=== PATIENT | female | born 1995 | race Caucasian/White ===

== ENCOUNTER 2025-03-01 15:24 | Emergency (ER) | payer OTHER, SELFPAY ==
--- OUTSIDE RECORDS SUMMARY | 2025-03-01 15:28 | XMS_ITS | Clinical Summary ---
Author Organization [facility] Virtual Care Address [facility] [place] [address] Phone Care Team Providers Care Molder Punch Name Role Phone Roc Coats MD Primary Care Provider [phone] Marti Alfaro ASSISTANT DIRECTOR Unavailable Allergies Active Allergy Reactions Criticality Noted Date Comments Penicillins Unknown 04/20/2016 As a child Penicillins Unknown 01/03/2022 Sulfa (Sulfonamide Antibiotics) Hives Reaction: Hives, Sulfa (Sulfonamide Antibiotics) Hives Medium 12/24 Medications fluticasone propionate (FLONASE) 50 mcg/actuation nasal sprayIndication s:Chronic rhinitis Administer 2 sprays into each nostril daily 1 each 4 Active Active Problems Problem Noted Date Diagnosed Date Chronic rhinitis 12/21/2023 Assessment & Plan (12/21/2023 2:59 PM FASHION CONSULTANT): Blood allergy testing Flonase 2 sprays into each nostril while looking down over the sink, do not sniff in or blow nose after use for at least 30 minutes daily Consider Cetirizine (Zyrtec) 10 mg daily Rhinorrhea 12/21/2023 Assessment & Plan (12/21/2023 2:59 PM FASHION CONSULTANT): Blood allergy testing Flonase 2 sprays into each nostril while looking down over the sink, do not sniff in or blow nose after use for at least 30 minutes daily Consider Cetirizine (Zyrtec) 10 mg daily Severe pre-eclampsia 02/15/2019 Hypertension in obstetric context 01/13/2019 Abdominal pain 12/16/2018 Chronic migraine without aur a without status migrainosus, not intractable 11/18/2018 Hemorrhage affecting 08/09/2018 Threatened miscarriage 07/19/2018 Overweight with body mass index (BMI) 25.0-29.9 02/04/2017 Allergic rhinitis 01/30/2017 Acute vaginitis 08/14/2016 Leukocytosis 05/26/2016 Urinary tract infectious disease 05/26/2016 Spontaneous without complication 2015 Breast lump 06/11/2015 Surgical History Surgery Date Site/Laterality Comments OTHER SURGICAL HISTORY 2014 : Spontaneaous Medical History Medical History Date Comments Hx Other Medical ; Outc ome: Unknown Migraine Hypertension Family History Medical History Relation Name Comments Hypertension Father Hypertension; Asthma Maternal Grandmother Asthma; Diabetes Maternal Grandmother Diabete s mellitus; Hypertension Other Family history of Hypertension; Cancer Paternal Grandfather Cancer, unknown; Hypertension Paternal Grandfather Hyperte nsion; Asthma Paternal Grandmother Asthma; Relation Name Status Comments Father Maternal Grandmother Other Paternal Grandfather Paternal Grandmother Social History Tobacco Use Types Packs/Day Years Used Date Smoking Tobacco: Never Smokeless Tobacco: Never Alcohol Use Standard Drinks/Week Comments No 0 (1 standard drink = 0.6 oz pur e alcohol) Comments Unknown Sex and Gender Information Value Date Recorded Sex Assigned at Not on file Legal Sex Female 7:11 PM CDT Gender Identity Not on file Sexual Orientation Not on file Obstetrics History Last Filed Vital Signs Vital Sign Reading Time Taken Comments Blood Pressure 134/86 12/21/2023 2:31 PM FASHION CONSULTANT Pulse 73 12/21/2023 2:31 PM FASHION CONSULTANT Temperature 36.4 C (97.6 F) 12/21/2023 2:31 PM FASHION CONSULTANT Respiratory Rate 16 02/28/2023 11:5 5 AM CDT Oxygen Saturation 97% 12/21/2023 2:31 PM FASHION CONSULTANT Inhaled Oxygen Concentration - - Weight 72.9 kg (160 lb 12.8 oz) 12/21/2023 2:31 PM FASHION CONSULTANT Height 157.5 cm (5' 2.01 ) 12/21/2023 2:31 PM CS T Body Mass Index 29.4 12/21/2023 2:31 PM FASHION CONSULTANT Plan of Treatment Health Maintenance Due Date Last Done Comments Cervical Cancer Screening 1995 Depression Screening 1995 Hepatitis C Screening 1995 Varicella Vaccines (1 of 2 - 13+ 2-dose series) 2008 Regular Well Visit/Exam 18-64 2013 Influenza Vaccine (#1) 2024 12/28/2019, 2017 DTaP/Tdap/Td Vaccine (8 - Td or Tdap) 01/27/2029 01/27/2019, 06/10/2006, 05/12/2001, Additional history exists Hepatitis B Screening Completed 05/26/2002 , 12/22/1996, 04/18/1996, Additional history exists HPV Vaccines Aged Out No longer eligi ble based on patient's age to complete this topic Pneumococcal vaccine <65 Aged Out No longer eligible based on patient's age to complete this topic Insurance [facility] CHOICE [facility]US [facility] Care Teams Molder Punch Relationship Specialty Start Date End Date Roc Coats MD [address] [facility] [address] [place] [address] PCP - General Family Medicine 01/03/22 Marti Alfaro NP [address] [facility] [address] [place] [address] 01/03/22
--- OUTSIDE RECORDS SUMMARY | 2025-03-01 15:28 | XMS_ITS | Clinical Summary ---
Author Organization [facility] Address [address] [place] [address] Care Team Providers Care Trash Man Name Role Phone Unavailable Primary Care Provider Unavailabl e Source Comments [facility],non-owned Affiliates and Associated Physician Practices is amultiple site organization consisting of ambulatory clinics and hospital sitesin [place], [place], [place] and [place]. This disclosure is being madepursuant to the Care Everywhere program and may not contain all information available regarding this patient. Last updated 18.[facility] Allergies Active Allergy Reactions Criticality Noted Date Comments Penicillins Unknown 01/27/2019 Sulfa Drugs Urticaria Medium 01/27/2019 Immunizations Immunization Administration Dates Next Due TDAP (7yrs+) 01/27/2019 Social History Tobacco Use Types Packs/Day Years Used Date Smoking Tobacco: Never Assessed Comments Unknown Sex and Gender Information Value Date Recorded Sex Assigned at Not on file Legal Sex Female 1:17 PM CDT Gender Identity Not on file Sexual Orientation Not on file Plan of Treatment Health Maintenance Due Date Last Done Comments HIV SCREENING 2010 HEPATITIS C SCREENING 10/11/2013 HEPATITIS B VACCINE (1 of 3 - 19+ 3-dose series) 2014 COVID-19 VACCINE (2023-2 5 season) 2024 DEPRESSION SCREENING 10/26/2024 INFLUENZA VACCINE (Season Ended) 2025 DTAP/TDAP/TD VACCINES (2 - T d or Tdap) 01/27/2029 01/27/2019 ZOSTER VACCINE (1 of 2) 2045 HIB VACCINE Aged Out No longer eligi ble based on patient's age to complete this topic HPV VACCINE Aged Out No longer eligi ble based on patient's age to complete this topic MENINGOCOCCAL (Group B) VACC INE SHARED DECISION-MAKING Aged Out No longer eligibl e based on patient's age to complete this topic MENINGOCOCCAL GROUPS A/C/Y/W VACCINE Aged Out No longer eligible b ased on patient's age to complete this topic PNEUMOCOCCAL VACCINE Aged Out No long er eligible based on patient's age to complete this topic Insurance [place] [address]
--- OUTSIDE RECORDS SUMMARY | 2025-03-01 15:28 | XMS_ITS | Clinical Summary ---
Author Organization [facility] Address [address] [place] [address] Phone Care Team Providers Care Care Aid Name Role Phone Roc Coats MD Primary Care Provider [phone] Elton Briceno Unavailable Allergies Active Allergy Reactions Criticality Noted Date Comments Penicillins Unknown 04/20/2016 As a child Sulfa Antibiotics Hives High 11/19/2015 Medications No known medications Active Problems Problem Noted Date Diagnosed Date Chronic migraine without aur a without status migrainosus, not intractable 11/18/2018 Physical exam, annual (Adult) 01/30/2017 Allergic rhinitis 01/30/2017 Immunizations Immunization Administration Dates Next Due DTAP VACCINE, UNSPECIFIED FORMULATION 05/12/2001 ,06/22/1997 DTP-Hib 04/18/1996,03/01/1996,01/04/1996 Hepatitis B Vaccine, Pediatric/adolescent 12/22/1996,04/18/1996,01/04/1996,10/21,1995 Hepatitis B Vaccine,unspecif ied Formulation 05/26/2002 Hib Vaccine,unspecified Formulation 06/22/1997 Inactivated Polio Vaccine 05/12/2001 Influenza Vaccine, Quadrivalent, PF 12/28/2019,1 MMR Vaccine 02/16/2019,05/12/2001,12/22/1996 Meningococcal Vaccine, Unspe cified Formulation 01/07/2010 OPV 04/18/1996,03/01/1996,01/04/1996 TDAP Vaccine 01/27/2019,06/10/2006 Family History Medical History Relation Name Comments Hypertension Father Cancer Paternal Grandfather Lung Cancer Paternal Grandmother Relation Name Status Comments Brother Alive Father Alive Mother Alive Paternal Grandfather Paternal Grandmother Sister Alive Social History Tobacco Use Types Packs/Day Years Used Date Smoking Tobacco: Never Smokeless Tobacco: Never Tobacco Cessation:Counseling Given: Yes Alcohol Use Standard Drinks/Week Comments No 0 (1 standard drink = 0.6 oz pur e alcohol) PHQ-2 Answer Date Recorded Total Score - Questions 1-9 0 01/2020 Education Answer Date Recorded What is the highest level of school you have completed or the highest degree you have received? Associate degree: academic program 01/27/2023 Sexually Active Control Partners Comments Yes Male Comments No Sex and Gender Information Value Date Recorded Sex Assigned at Not on file Legal Sex Female 7:58 PM CDT Gender Identity Not on file Sexual Orientation Not on file Last Filed Vital Signs Vital Sign Reading Time Taken Comments Blood Pressure 122/70 01/12/2024 2:53 PM CDT Pulse 85 01/12/2024 2:53 PM CDT Temperature 36.1 C (96.9 F) 01/12/2024 2:53 PM CDT Respiratory Rate 14 01/12/2024 2:53 PM CDT Oxygen Saturation 100% 01/12/2024 2:53 PM CDT Inhaled Oxygen Concentration - - Weight 73.8 kg (162 lb 11.2 oz) 01/12/2024 2:53 PM CDT Height 157.5 cm (5' 2 ) 01/12/2024 2:53 PM CDT Body Mass Index 29.76 01/12/2024 2:53 PM CDT Plan of Treatment Health Maintenance Due Date Last Done Comments Influenza Immunization (Season Ended) 2025 12/28/2019, 12/28/2019, 08/11/2018 Pap Smear 01/27/2026 01/27/2023, 01/24/2021 DTaP/Tdap/Td Immunization (8 - Td or Tdap) 01/27/2029 01/27/2019, 06/10/2006, 05/12/2001, Additional history exists Td Immunization Every 10 Years (Adults With 1 Tdap) 01/27/2029 01/27/2019, 06/10/2006 Respiratory Syncytial Virus (RSV) Immunization (Adult) (1 - 1-dose 75+ series) 2070 Hepatitis B Immunization Completed 002, 12/22/1996, 04/18/1996, Additional history exists Meningococcal Immunization (ACWY) Aged Out 01/07/2010 No longer eligible based on patient's age to complete this topic Hepatitis C Virus (HCV) Screening Discontinued Pneumococcal Immunization Combined Aged Out No longer eligible based on patient's age to complete this topic Rotavirus Immunization Aged Out No lo nger eligible based on patient's age to complete this topic SARS-COV-2 Immunization Discontinued Procedures Procedure Name Priority Date/Time Associated Diagnosis Comments PATHOLOGY CYTOLOGY PLACEMENT SPECIALIST Routine 01/27/2023 5:17 PM CDT Screening for malignant neoplasm of cervix Encounter for annual routine gynecological examination from Last 3 Months or Most Recently Relevant to Health Maintenance Results * PATHOLOGY CYTOLOGY PLACEMENT SPECIALIST (01/27/2023 5:17 PM CDT) SPECIMEN ADEQUACY Satisfactory for evaluation. Endocervical/transf ormation zone component is present. 02/05/2023 2:47 PM CDT [facility] DESCRIPTIVE DIAGNOSIS NEGATIVE FOR INTRAEPITHELIAL LESIONS OR MALIGNANCY. 02/05/2023 2:47 PM CDT [facility] at 1447 CDT Automated Examination This sample was not evaluated by the automated imaging and review system due to technical and/or biologic factor(s). The case was screened, reviewed, and finalized by a cotton ball bagger and/or pathologist. 02/05/2023 2:47 PM CDT [facility] Disclaimer The PAP smear is a screening test designed to detect cancerous or precancerous cells of the uterine cervix. It is one of the best means available for detection of cervical cancer but still carries an inherent false-negative rate. The consequences of a false-negative PAP result can be minimized by adhering to current screening guidelines. The following are general guidelines recommended by the ACS, ASCP, ASCCP, and ACOG: PAP testing is recommended every three years for women 21-29, Co-Testing , a PAP test in conjunction with an HPV (Human Papillomavirus) test for women ages 30-65, and no PAP or HPV testing for women under the age of 21 or older than 65 unless clinically indicated. 02/05/2023 2:47 PM CDT [facility] Other CERVIX UTERI STRUCTURE / Unknown Non-Phlebotomy Collection / Unknown 01/27/2023 5:17 PM CDT 01/27/2023 5:17 PM CDT us Heather Castillo LONGWALL MACHINE OPERATOR HELPER, LEAD DATA ARCHITECT PATHOLOGY/CYTOLOGY O RDERABLES Final Result [facility] [address] [place] [address], [facility] [address] [place] [address] from Last 3 Months or Most Recently Relevant to Health Maintenance Insurance MEDICAID [place] Advance Directives * Full Code (Latest Code Status on File) Date Activated Date Inactivated Comments 06/13/2016 2:16 PM 06/13/2016 7:50 PM CPR-Full Alex atment: FULL ARREST: Attempt Resuscitation/CPR wit intubation and mechanical ventilation. PRE-ARREST: Use entire range of life support measures to stabilize the patient. Care Teams Care Aid Relationship Specialty Start Date End Date Roc Coats MD [address] [address] PCP - General Family Medicine 10/01/17 Elton Briceno [address] [place] [address] Plastic Press Operator Artificial Inseminator 07/07/19
--- OUTSIDE RECORDS SUMMARY | 2025-03-01 15:28 | XMS_ITS | Encounter Summary ---
Author Organization [facility] Address [address] [facility] [place] [address] Phone Care Team Providers Care Kick Press Operator Name Role Phone Roc Coats MD Primary Care Provider [phone] Elton Briceno Unavailable Encounter Details Date Type Department Care Team (Late st Contact Info) Description 01/12/2024 Telephone [facility] [address] [place] [address] Roc Coats MD [address] [address] Social History Tobacco Use Types Packs/Day Years Used Date Smoking Tobacco: Never Smokeless Tobacco: Never Alcohol Use Standard Drinks/Week Comments No 0 (1 standard drink = 0.6 oz pur e alcohol) PHQ-2 Answer Date Recorded Total Score - Questions 1-9 0 03/0 01/2020 Education Answer Date Recorded What is [...] on file Sexual Orientation Not on file documented as of this encounter Plan of Treatment Not on file documented as of this encounter Visit Diagnoses Not on filedocumented in this encounter Additional Health Concerns Assessment Noted Time PHQ-9 Depression Total Score: 0 12/28/19 20 9:55 AM MATERIAL RECLAIMER documented as of this encounter Care Teams Kick Press Operator Relationship Specialty Start Date End Date Roc Coats MD [address] [address] PCP - General Family Medicine 10/01/17 Elton Briceno [address] [place] [address] Hull Inspector Occupational Health Nurse 07/07/19 documented as of this encounter
--- OUTSIDE RECORDS SUMMARY | 2025-03-01 15:28 | XMS_ITS | Referral Summary ---
Author Organization [facility] Virtual Care Address [facility] [place] [address] Phone Care Team Providers Care Denial Management Representative Name Role Phone Roc Coats MD Primary Care Provider [phone] Marti Alfaro [employer]IP[employer]IC Unavailable Allergies Active Allergy Reactions Criticality Noted [...] 12/21/2023 Assessment & Plan (12/21/2023 2:59 PM [employer]P [employer]): Blood allergy testing Flonase 2 sprays into each nostril while looking down over the sink, do not sniff in or blow nose after use for at least 30 minutes daily Consider Cetirizine (Zyrtec) 10 mg daily Rhinorrhea 12/21/2023 Assessment & Plan (12/21/2023 2:59 PM EVP [employer] SALES): Blood allergy testing Flonase 2 sprays into [...] Spontaneous without complication 2015 Breast lump 06/11/2015 Social History Tobacco Use Types Packs/Day Years [...] Comments Blood Pressure 134/86 12/21/2023 2:31 PM EVP [employer] Pulse 73 12/21/2023 2:31 PM EVP [employer] SALES Temperature 36.4 C (97.6 F) 12/21/2023 2:31 PM EVP [employer] SALES Respiratory Rate 16 02/28/2023 11:5 5 AM CDT Oxygen Saturation 97% 12/21/2023 2:31 PM EVP [employer]ES Inhaled Oxygen Concentration - - Weight 72.9 kg (160 lb 12.8 oz) 12/21/2023 2:31 PM EVP [employer] SALES Height 157.5 cm (5' 2.01 ) 12/21/2023 2:31 PM CS T Body Mass Index 29.4 12/21/2023 2:31 PM EVP GLOBAL MULTIMEDIA SALES Plan of Treatment Not on file Insurance [facility] Care Teams Denial Management Representative Relationship Specialty Start Date End Date Roc Coats MD [address] [facility] [address] [place] [address] PCP - General Family Medicine 01/03/22 Marti Alfaro NP [address] [facility] [address] [place] [address] 01/03/22
[2025-03-01 15:36] VITALS: BP 125/74; PULSE 86; RESP 16; TEMP 36.9; O2SAT 100
--- NOTE | 2025-03-01 16:22 | ED_ITS ---
HPI - Female Genitourinary General Chief complaint: Urogenital-Female Stated complaint: urinary irritation Time Seen by Provider: 03/01/25 15:55 Source: patient and RN notes reviewed Mode of arrival: ambulatory Limitations: no limitations History of Present Illness HPI Narrative: 29-year-old female presents Express Care complaining of urinary tract symptoms for 2 days. Patient reports burning with urination foul-smelling urine, increased frequency and hesitancy, and suprapubic abdominal pain since yesterday. Patient has taken Azo [id number] for symptom relief. Patient denies any fevers, body aches, chills, back pain, flank pain, blood in her urine. Patient denies any concerns for STIs, vaginal discharge or vaginal bleeding. Related Data Allergies Allergy/AdvReac Type Severity Reaction Status Date / Time Penicillins Allergy Unknown Unknown Verified 03/01/25 15:36 Sulfa (Sulfonamide Allergy Unknown Unknown Verified 03/01/25 15:36 Antibiotics) Review of Systems Review of Systems: CONSTITUTIONAL: Denies fever, chills, or sweats. EYES: Denies visual changes, redness, or discharge. ENT: Denies rhinorrhea, congestion, sore throat, or otalgia. CARDIOVASCULAR: Denies chest pain, palpitations, or edema. RESPIRATORY: Denies cough or dyspnea. GASTROINTESTINAL: Denies abdominal pain, nausea, vomiting, or diarrhea. GENITOURINARY: Positive for dysuria, foul-smelling urine, increased frequency and hesitancy. Negative for vaginal bleeding, vaginal discharge, hematuria. SKIN: Denies rash or itching. MUSCULOSKELETAL: Denies back pain, joint pain, or myalgia. NEUROLOGIC: Denies headache, numbness, or weakness. PSYCHIATRIC: Denies anxiety or depression. All other systems reviewed are negative, except as documented in HPI. PMFSH Family History Family History Father Hypertension Social History Social History Smoking status: Never smoker Comments At the time of my signature, I reviewed and agree with the nursing past medical, surgical, social, and family history. There is no relevant family history pertinent to the patient complaint. Exam Narrative: GENERAL: This is a well-nourished, well-developed adult, in no apparent distress. They are non ill-appearing, nontoxic appearing. HEAD: normocephalic, atraumatic. EYES: Sclera clear/white. Conjunctiva normal. Vision is grossly intact. Extraocular movements intact EARS: External ears normal. Hearing grossly intact. NOSE: External nose normal THROAT: Mucous membranes moistUvula midline. NECK: Normal range of motion CARDIOVASCULAR: Regular rate and rhythm without murmurs, gallops, or rubs. RESPIRATORY: Clear to auscultation. Breath sounds equal bilaterally. No wheezes, rales, or rhonchi. GASTROINTESTINAL: Abdomen soft, flat, non-tender, nondistended. Bowel sounds are active. No hepato-splenomegaly, or palpable masses. No guarding. No rebound tenderness SKIN: warm, Dry, intact with no suspicious lesions or rash, good texture and turgor. NEURO: awake, alert, and oriented to person, place and time. There were no obvious focal neurologic abnormalities. EXTREMITIES: No joint tenderness, effusion, or edema noted. BACK: Nontender without deformity. No CVA tenderness. Course Course Emergency Course: Portions of this record may have been created with voice recognition software Level of Care: Express Care Visit Vital Signs Vital signs: Vital Signs Temperature 98.5 F 03/01/25 15:36 Pulse Rate 86 03/01/25 15:36 Respiratory Rate 16 03/01/25 15:36 Blood Pressure 125/74 03/01/25 15:36 Pulse Oximetry 100 03/01/25 15:36 Oxygen Delivery Room Air 03/01/25 15:36 Temperature 98.5 F 03/01/25 15:36 Pulse Rate 86 03/01/25 15:36 Respiratory Rate 16 03/01/25 15:36 Blood Pressure 125/74 03/01/25 15:36 Pulse Oximetry 100 03/01/25 15:36 Oxygen Delivery Room Air 03/01/25 15:36 Reviewed MDM - Female Genitourinary MDM Narrative Medical decision making narrative: Unable to perform urine dipstick due to patient taking Azo prior to arrival which may alter the results of her urine dipstick. Patient's symptoms are consistent with a urinary tract infection. Through shared decision making discussed with patient about performing urine culture and wait for results prior to starting antibiotic treatment are to start treatment now, patient elects to go ahead and start treatment for urinary tract infection. Patient has allergy to sulfas, asked patient about her penicillin allergy and she denies a penicillin allergy. Will treat empirically with cephalexin. Urine culture is pending. Discussed physical exam findings. Advised supportive measures and signs/symptoms to go to the ER. Pt is appropriate for outpt treatment and f/u. Differential Diagnosis Differential diagnosis: Likely urinary tract infection, cystitis and other (Pyelonephritis) Critical Care Time Critical Care Time Critical Care Time: No Discharge Plan Discharge Clinical Impression: Urinary tract infection Qualifiers: Urinary tract infection type: site unspecified Hematuria presence: without hematuria Qualified Code(s): N39.0 - Urinary tract infection, site not specified Patient Disposition: Home Condition: Stable Instructions: Antibiotic Form, Urinary Tract Infection in Women (ED) Additional Instructions: Take the antibiotic as prescribed The urine will be sent of for a culture to identify what type of bacteria is causing your infection. If the culture shows that the antibiotic will not get rid of your infection, you will be notified and a new antibiotic will be called in for you. Increase water intake you will need to follow up with your PCP, call to schedule an appointment. Go to the ER for any worsening symptoms or concerns Patient Language: Pakistani Prescriptions: New cephalexin 500 mg capsule 500 mg PO BID 5 Days Qty: 10 0RF Follow-up/Referrals: Rebecca,JOSE Keith [Primary Care Provider] - Time of Disposition: 16:04
== END 2025-03-01 16:13 | disposition home or self-care (01) ==
PROVIDERS: PCP Physician Assistant
DX: N39.0 Urinary tract infection, site not specified (principal)
CPT/HCPCS: 87086; 87186; 99213; G0463